=== PATIENT | female | born 1990 | race Caucasian/White ===

== ENCOUNTER 2019-07-15 17:37 | Emergency (ER) | payer SELFPAY ==
[~2019-07-15] VITALS: Ht 172.7 cm; Wt 54.6 kg
[2019-07-15 18:43] LABS: BASO % 0.3 % (0.0-1.0); EOS # 0.1 10^3/uL (0.0-0.5); EOS % 0.6 % (0.0-3.0); HEMATOCRIT 41.6 % (36.0-47.0); HEMOGLOBIN 14.1 g/dl (12.0-15.5); LYMPH # 2.1 10^3/uL (1.5-5.0); LYMPH % 21.3 % (24.0-44.0); MEAN CORPUSCULAR HEMOGLOBIN 32.8 pg (27.0-33.0); MEAN CORPUSCULAR HGB CONC 33.9 g/dl (32.0-36.5); MEAN CORPUSCULAR VOLUME 96.7 fl (80.0-96.0); MONO # 0.6 10^3/uL (0.0-0.8); MONO % 5.7 % (0.0-5.0); NEUTROPHILS # 7.2 10^3/uL (1.5-8.5); NEUTROPHILS % 71.9 % (36.0-66.0); PLATELET COUNT, AUTOMATED 323 10^3/uL (150-450)
[2019-07-15] MEDS ORDERED: ONDANSETRON 4 MG ORAL DISINTEGRATING TAB (Q0162 PER 1MG) PO ONE (18:45)
[2019-07-15] MEDS ORDERED: ACETAMINOPHEN 325 MG TAB PO ONE (18:45)
[2019-07-15 19:56] LABS: ALBUMIN 4.3 GM/DL (3.2-5.2); ALT/SGPT 16 U/L (12-78); BILIRUBIN,DIRECT 0.3 MG/DL (0.0-0.2); BILIRUBIN,TOTAL 0.9 MG/DL (0.2-1.0); BLOOD UREA NITROGEN 7 MG/DL (7-18); CALCIUM LEVEL 9.5 MG/DL (8.5-10.1); CARBON DIOXIDE LEVEL 28 MEQ/L (21-32); CHLORIDE LEVEL 103 MEQ/L (98-107); CREATININE FOR GFR 0.64 MG/DL (0.55-1.30); GLOMERULAR FILTRATION RATE > 60.0 (>60); GLUCOSE, FASTING 74 MG/DL (70-100); HCG, SERUM QUANTITATIVE 99893 MIU/ML; LIPASE 141 U/L (73-393); POTASSIUM SERUM 4.1 MEQ/L (3.5-5.1); SODIUM LEVEL 138 MEQ/L (136-145); TOTAL PROTEIN 7.8 GM/DL (6.4-8.2)
--- NOTE | 2019-07-15 20:10 | REPVR ---
PROCEDURE INFORMATION: Exam: US First Trimester, Transabdominal Exam date and time: 07/15/2019 7:38 PM Clinical history: 29 years old, female; complicated by abdominal or pelvic pain; Lower; First trimester; Gestational age or lmp: 7w 6d; ; Additional info: Abd cramping, lbp, 8wks preg TECHNIQUE: Imaging protocol: Real-time transabdominal obstetrical ultrasound of the maternal pelvis and a first trimester , less than 14 weeks 0 days, with image documentation. COMPARISON: No relevant prior studies available. FINDINGS: GESTATION: Gestation: Intrauterine gestational sac with pole and yolk sac. Heart rate: heartbeat of 178 beats per minute. Placenta: Small subchorionic hemorrhage measuring 11 x 4 x 10 mm. BIOMETRY: Estimated gestational age: [place] rump length is 1.5 cm suggesting an age of 7 weeks 6 days. The EDC is 02/25/2020. MATERNAL: Uterus: Unremarkable. Cervix: Unremarkable. Right adnexa: Grossly unremarkable. Left adnexa: U grossly unremarkable. Intraperitoneal: No intraperitoneal free fluid. IMPRESSION: 1. Single live intrauterine fetus with an estimated age of 7 weeks 6 days by crown-rump length. The EDC is 02/25/2020. 2. Small subchorionic hemorrhage measuring 11 x 4 x 10 mm. Electronically signed by: Jacob Grant On 07/15/2019 20:09:36 PM
[2019-07-15 20:46] VITALS: BP 135/81
== END 2019-07-15 21:03 | disposition home or self-care (01) ==
LOC: M ED 17:37
DX: O20.8 Other hemorrhage in early pregnancy (principal); O99.511 Diseases of the respiratory system complicating pregnancy, first trimester; J45.909 Unspecified asthma, uncomplicated; Z3A.01 Less than 8 weeks gestation of pregnancy; Z88.0 Allergy status to penicillin; Z88.1 Allergy status to other antibiotic agents; Z88.2 Allergy status to sulfonamides; Z88.8 Allergy status to other drugs, medicaments and biological substances
CPT/HCPCS: 36415; 76801; 80048; 80076; 81001; 83690; 84702; 85025; 99284; Q0162

== ENCOUNTER 2019-07-18 18:03 | Emergency (ER) | payer OTHER, SELFPAY ==
[~2019-07-18] VITALS: Ht 172.7 cm; Wt 54.3 kg
[2019-07-18] MEDS ORDERED: PREN1TAB11 PO (18:37)
[2019-07-18] MEDS ORDERED: ZOFR4TAB16 PO (18:37)
[2019-07-18 19:05] LABS: BASO % 0.3 % (0.0-1.0); EOS % 0.3 % (0.0-3.0); HEMATOCRIT 38.4 % (36.0-47.0); HEMOGLOBIN 13.3 g/dl (12.0-15.5); LYMPH # 1.5 10^3/uL (1.5-5.0); LYMPH % 12.2 % (24.0-44.0); MEAN CORPUSCULAR HEMOGLOBIN 32.9 pg (27.0-33.0); MEAN CORPUSCULAR HGB CONC 34.6 g/dl (32.0-36.5); MONO # 0.5 10^3/uL (0.0-0.8); MONO % 4.1 % (0.0-5.0); NEUTROPHILS # 10.1 10^3/uL (1.5-8.5); NEUTROPHILS % 82.6 % (36.0-66.0); PLATELET COUNT, AUTOMATED 308 10^3/uL (150-450); RED BLOOD COUNT 4.04 10^6/uL (4.00-5.40); WHITE BLOOD COUNT 12.2 10^3/uL (4.0-10.0)
[2019-07-18 19:42] LABS: ALBUMIN 4.1 GM/DL (3.2-5.2); ALT/SGPT 19 U/L (12-78); BILIRUBIN,DIRECT 0.3 MG/DL (0.0-0.2); BILIRUBIN,TOTAL 0.9 MG/DL (0.2-1.0); BLOOD UREA NITROGEN 10 MG/DL (7-18); CALCIUM LEVEL 9.5 MG/DL (8.5-10.1); CARBON DIOXIDE LEVEL 28 MEQ/L (21-32); CHLORIDE LEVEL 103 MEQ/L (98-107); CREATININE FOR GFR 0.67 MG/DL (0.55-1.30); GLOMERULAR FILTRATION RATE > 60.0 (>60); GLUCOSE, FASTING 97 MG/DL (70-100); HCG, SERUM QUANTITATIVE 112217 MIU/ML; LIPASE 132 U/L (73-393); POTASSIUM SERUM 3.6 MEQ/L (3.5-5.1); SODIUM LEVEL 139 MEQ/L (136-145); TOTAL PROTEIN 7.5 GM/DL (6.4-8.2)
[2019-07-18] MEDS ORDERED: MORPHINE 4 MG/ML 1ML VIAL/SYRINGE (J2270) IV ONE (19:45)
[2019-07-18] MEDS ORDERED: METOCLOPRAMIDE INJ 10MG/2ML VIAL (J2765) IV ONE (19:45)
[2019-07-18] MEDS ORDERED: NS 1,000 ML IV ONE (19:45)
--- NOTE | 2019-07-18 21:25 | REPVR ---
PROCEDURE INFORMATION: Exam: US First Trimester, Transabdominal Exam date and time: 07/18/2019 8:26 PM Clinical history: 29 years old, female; complicated by abdominal or pelvic pain; Lower; First trimester; Gestational age or lmp: 8w2d; ; Additional info: Worsening rlq and llq pain, severe, 8wks preg TECHNIQUE: Imaging protocol: Real-time transabdominal obstetrical ultrasound of the maternal pelvis and a first trimester , less than 14 weeks 0 days, with image documentation. COMPARISON: US OB 07/15/2019 7:36 PM FINDINGS: GESTATION: Gestation: Intrauterine gestation with pole. Heart rate: heart rate 171 beats per minute. Placenta: There is a small subchorionic hemorrhage measuring 1.3 cm in greatest dimension. Amniotic fluid: Amniotic and chorionic fluid are normal for gestational age. BIOMETRY: Estimated gestational age: Gestational age 8 weeks and 6 days. [place]-Rump length: [place]-rump length 2.2 cm. Estimated due date: Estimated due date 02/25/2020. MATERNAL: Uterus: Unremarkable. Cervix: Unremarkable. Right adnexa: Unremarkable right adnexal structures. Left adnexa: Unremarkable left adnexal structures. Intraperitoneal: No intraperitoneal free fluid. IMPRESSION: Living intrauterine gestation measuring 8 weeks and 6 days with due date 02/25/2020. Again, small subchronic hemorrhage noted. Electronically signed by: Jin Vital On 07/18/2019 21:25:06 PM
[2019-07-18 21:55] VITALS: BP 117/61
[2019-07-18] MEDS ORDERED: MIRA3350 PO (22:00)
[2019-07-18] MEDS ORDERED: ONDA4TAB6 PO (22:01)
[2019-07-18] MEDS ORDERED: LACTULOSE 20 GM/30 ML SYRUP UD PO ONE (22:15)
[2019-07-18] MEDS ORDERED: MAGNESIUM CITRATE 300 ML BTL PO ONE (22:15)
== END 2019-07-18 22:23 | disposition home or self-care (01) ==
LOC: M ED 18:03
DX: O26.891 Other specified pregnancy related conditions, first trimester (principal); Z3A.08 8 weeks gestation of pregnancy; O20.8 Other hemorrhage in early pregnancy; K59.00 Constipation, unspecified; Z88.8 Allergy status to other drugs, medicaments and biological substances; Z88.2 Allergy status to sulfonamides; Z88.0 Allergy status to penicillin; Z88.1 Allergy status to other antibiotic agents; O99.611 Diseases of the digestive system complicating pregnancy, first trimester
CPT/HCPCS: 76801; 80048; 80076; 81001; 83690; 84702; 85025; 86850; 86900; 86901; 93976; 96361; 96374; 96375; 99284; J2270; J2765

== ENCOUNTER → 2019-08-09 | Outpatient (CLI) | payer OTHER ==
[~2019-08-09] MED LIST: MIRA3350 PO; ONDA4TAB6 PO; PREN1TAB11 PO; ZOFR4TAB16 PO
[2019-08-09 17:32] LABS: BASO % 0.3 % (0.0-1.0); EOS % 0.4 % (0.0-3.0); HEMATOCRIT 38.9 % (36.0-47.0); HEMOGLOBIN 13.2 g/dl (12.0-15.5); LYMPH # 1.7 10^3/uL (1.5-5.0); LYMPH % 16.1 % (24.0-44.0); MEAN CORPUSCULAR HEMOGLOBIN 32.1 pg (27.0-33.0); MEAN CORPUSCULAR HGB CONC 33.9 g/dl (32.0-36.5); MEAN CORPUSCULAR VOLUME 94.6 fl (80.0-96.0); MONO # 0.5 10^3/uL (0.0-0.8); NEUTROPHILS # 8.3 10^3/uL (1.5-8.5); NEUTROPHILS % 77.9 % (36.0-66.0); PLATELET COUNT, AUTOMATED 335 10^3/uL (150-450); RED BLOOD COUNT 4.11 10^6/uL (4.00-5.40); WHITE BLOOD COUNT 10.7 10^3/uL (4.0-10.0)
[2019-08-09 17:40] LABS: ALT/SGPT 16 U/L (12-78); BILIRUBIN,TOTAL 1.6 MG/DL (0.2-1.0); CREATININE FOR GFR 0.59 MG/DL (0.55-1.30); FREE T4 1.58 NG/DL (0.76-1.46); GLOMERULAR FILTRATION RATE > 60.0 (>60); LDH LACTATE DEHYDROGENASE 145 U/L (84-246); THYROID STIMULATING HORMONE < 0.005 uIU/ML (0.358-3.740); URIC ACID 2.3 MG/DL (2.6-6.0)
[2019-08-09 17:45] LABS: TOTAL PROTEIN,RANDOM URINE 17.1 MG/DL (0.0-12.0)
[2019-08-09 19:55] LABS: CHLAMYDIA DNA AMPLIFICATION NEGATIVE (NEGATIVE); GC DNA AMPLIFICATION NEGATIVE (NEGATIVE)
[2019-08-10 09:30] LABS: RUBELLA IgG QUALITATIVE IMMUNE (IMMUNE)
[2019-08-10 09:59] LABS: HIV 1&2 SCREEN CENTAUR NEGATIVE (NEGATIVE)
== END ==
LOC: M SMT 15:23
PROVIDERS: ATTEND Advanced Practice Midwife
DX: Z34.81 Encounter for supervision of other normal pregnancy, first trimester (principal); Z3A.00 Weeks of gestation of pregnancy not specified

== ENCOUNTER → 2019-08-12 | Outpatient (CLI) | payer OTHER | LOC: M SMT 13:02 | PROVIDERS: ATTEND Advanced Practice Midwife | DX: Z34.81 Encounter for supervision of other normal pregnancy, first trimester (principal); Z3A.00 Weeks of gestation of pregnancy not specified ==

== ENCOUNTER → 2019-08-24 | Outpatient (CLI) | payer OTHER ==
--- NOTE | 2019-08-25 04:09 | REP ---
Clinical: Kidney stone. Technique: Real time emi scale and color evaluation using curved array transducer. Findings: The bilateral kidneys are normal in reniform shape but demonstrate mildly prominent echogenic pyramids with small echogenic foci causing posterior shadowing suggesting medullary sponge kidney and small nonobstructing intrarenal calculi measuring up to 5 - 6 mm in the left kidney. No hydronephrosis, cystic or renal mass lesion. Right kidney measures 11.3 x 5.9 x 5.1 cm. Left kidney measures 12.2 x 5.2 x 4.7 cm. Small amounts of debris noted in the bladder which are nonspecific and may be correlated with urinalysis. Impression: 1. Nephrolithiasis and possible medullary sponge kidney. Electronically Signed by Alvarado Chisholm MD 08/25/2019 04:00 A
== END ==
LOC: M RAD 15:56
PROVIDERS: ATTEND Advanced Practice Midwife
DX: N20.0 Calculus of kidney (principal)

== ENCOUNTER → 2019-09-13 | Outpatient (CLI) | payer OTHER ==
[2019-09-13 18:45] LABS: FREE THYROXINE INDEX 3.1 % (1.3-4.8); THYROID STIMULATING HORMONE 0.13 uIU/ML (0.358-3.740); THYROXINE (T4) 11.5 UG/DL (4.5-12.0)
== END ==
LOC: M PLALAB 15:51
PROVIDERS: ATTEND Advanced Practice Midwife
DX: Z34.92 Encounter for supervision of normal pregnancy, unspecified, second trimester (principal); Z3A.00 Weeks of gestation of pregnancy not specified

== ENCOUNTER → 2019-09-30 | Outpatient (CLI) | payer OTHER ==
--- NOTE | 2019-09-30 18:31 | REP ---
HISTORY: anatomy. COMPARISON: None. Multiple ultrasonographic images of the gravid uterus show a single living intrauterine gestation in variable positions. Doppler interrogation of the heart shows a heart rate of 157 beats per minute. The placenta is anterior and not low lying. The subjective amniotic fluid volume is within normal limits. The cervix measures 4.2 cm in length and is closed. Evaluation of the maternal adnexal spaces shows no abnormalities. BPD 4.6 cm = 19 weeks 6 days HC 16.5 cm = 19 weeks 2 days AC 14.2 cm = 19 weeks 4 days FL 2.9 cm = 19 weeks 0 days The estimated weight is 284 grams, which is at the 33rd percentile for a 19 week 5 day gestational age. The structures visualized as unremarkable are as follows: Thalami, cavum septum pellucidum, cerebellum, cisterna magna, cerebral ventricles, spine, kidneys, urinary bladder, stomach, four chamber heart, right and left ventricular outflow tracts, three vessel umbilical cord, cord insertion, upper lip, and extremities. IMPRESSION: Single living intrauterine gestation as described above with an estimated gestational age of 19 weeks 3 days via composite criteria and an estimated date of delivery of 02/21/2020 by today's exam. No anomalies were detected. Electronically Signed by Vikash Jones DO 09/30/2019 06:56 P
== END ==
LOC: M RAD 15:32
PROVIDERS: ATTEND Advanced Practice Midwife
DX: Z34.92 Encounter for supervision of normal pregnancy, unspecified, second trimester (principal); Z3A.19 19 weeks gestation of pregnancy

== ENCOUNTER → 2019-10-13 | Outpatient (CLI) | payer OTHER ==
[2019-10-13 18:38] LABS: FREE T4 0.92 NG/DL (0.76-1.46); THYROID STIMULATING HORMONE 0.406 uIU/ML (0.358-3.740)
== END ==
LOC: M PLALAB 15:50
PROVIDERS: ATTEND Advanced Practice Midwife
DX: E07.9 Disorder of thyroid, unspecified (principal)

== ENCOUNTER 2019-11-08 12:27 | Outpatient (CLI) | payer OTHER ==
[~2019-11-08] VITALS: Ht 172.7 cm; Wt 57.7 kg
[2019-11-08] MEDS ORDERED: BUTA1CAP PO (12:43)
[2019-11-08 12:50] VITALS: BP 124/73
[2019-11-08 14:15] VITALS: BP 129/71
== END 2019-11-08 15:08 | disposition home or self-care (01) ==
LOC: M LDO 12:27
PROVIDERS: ATTEND Obstetrics & Gynecology
DX: O26.892 Other specified pregnancy related conditions, second trimester (principal); R10.2 Pelvic and perineal pain; Z87.448 Personal history of other diseases of urinary system; Z3A.24 24 weeks gestation of pregnancy
CPT/HCPCS: 76815; G0378; G0463

== ENCOUNTER → 2019-11-30 | Outpatient (CLI) | payer OTHER ==
[~2019-11-30] MED LIST changes: +BUTA1CAP PO
[2019-11-30 18:27] LABS: HEMATOCRIT 36.4 % (36.0-47.0); HEMOGLOBIN 12.1 g/dl (12.0-15.5); MEAN CORPUSCULAR HEMOGLOBIN 32.5 pg (27.0-33.0); MEAN CORPUSCULAR HGB CONC 33.2 g/dl (32.0-36.5); MEAN CORPUSCULAR VOLUME 97.8 fl (80.0-96.0); PLATELET COUNT, AUTOMATED 269 10^3/uL (150-450); RED BLOOD COUNT 3.72 10^6/uL (4.00-5.40); WHITE BLOOD COUNT 8.1 10^3/uL (4.0-10.0)
== END ==
LOC: M PLALAB 13:49
PROVIDERS: ATTEND Advanced Practice Midwife
DX: Z34.82 Encounter for supervision of other normal pregnancy, second trimester (principal); Z3A.00 Weeks of gestation of pregnancy not specified

== ENCOUNTER → 2019-12-23 | Outpatient (REF) | payer OTHER ==
[2019-12-23 18:37] LABS: APPEARANCE, URINE CLOUDY (CLEAR); BACTERIA, URINE AUTO 1+ (NEGATIVE); BILIRUBIN, URINE AUTO NEGATIVE (NEGATIVE); BLOOD, URINE BLOOD NEGATIVE (NEGATIVE); CALCIUM OXALATE CRYSTALS MODERATE; COLOR, URINE YELLOW (YELLOW); GLUCOSE, URINE (UA) AUTO NEGATIVE (NEGATIVE); KETONE, URINE AUTO NEGATIVE (NEGATIVE); LEUKOCYTE ESTERASE, URINE AUTO 3+ (NEGATIVE); MUCUS, URINE SMALL (NEGATIVE); NITRITE, URINE AUTO NEGATIVE (NEGATIVE); PROTEIN, URINE AUTO NEGATIVE (NEGATIVE); RBC, URINE AUTO 8 /HPF (0-3); SPECIFIC GRAVITY URINE AUTO 1.023 (1.002-1.035); SQUAMOUS EPITHELIAL CELL UR AU 6 /HPF (0-6); WBC, URINE AUTO 10 /HPF (0-3)
== END ==
LOC: M PLALAB 15:48
PROVIDERS: ATTEND Obstetrics & Gynecology
DX: R30.0 Dysuria (principal)

== ENCOUNTER 2020-01-09 18:48 | Outpatient (CLI) | payer OTHER ==
[~2020-01-09] VITALS: Ht 172.7 cm; Wt 61.8 kg
[2020-01-09 19:27] VITALS: BP 126/78
[2020-01-09] MEDS ORDERED: TAMSULOSIN 0.4 MG CAP PO ONE (19:30)
[2020-01-09 21:18] LABS: APPEARANCE, URINE CLOUDY (CLEAR); BACTERIA, URINE AUTO 1+ (NEGATIVE); BILIRUBIN, URINE AUTO NEGATIVE (NEGATIVE); BLOOD, URINE BLOOD 1+ (NEGATIVE); CALCIUM OXALATE CRYSTALS LARGE; COLOR, URINE YELLOW (YELLOW); GLUCOSE, URINE (UA) AUTO NEGATIVE (NEGATIVE); KETONE, URINE AUTO NEGATIVE (NEGATIVE); LEUKOCYTE ESTERASE, URINE AUTO 3+ (NEGATIVE); MUCUS, URINE SMALL (NEGATIVE); NITRITE, URINE AUTO NEGATIVE (NEGATIVE); PROTEIN, URINE AUTO NEGATIVE (NEGATIVE); RBC, URINE AUTO 15 /HPF (0-3); SPECIFIC GRAVITY URINE AUTO 1.016 (1.002-1.035); SQUAMOUS EPITHELIAL CELL UR AU 22 /HPF (0-6); WBC, URINE AUTO 12 /HPF (0-3)
[2020-01-09 21:21] VITALS: BP 127/77
--- NOTE | 2020-01-09 21:46 | REPVR ---
PROCEDURE INFORMATION: Exam: US Retroperitoneal Limited, Kidneys Exam date and time: 01/09/2020 9:17 PM Age: 29 years old Clinical indication: Abdominal pain; Flank; Left; ; Additional info: Decreased movement TECHNIQUE: Imaging protocol: Real-time ultrasound of the retroperitoneum with image documentation. Examination was focused on the kidneys. COMPARISON: RENAL US 08/24/2019 4:03 PM FINDINGS: Right kidney measures 11.4 cm in length. Left kidney measures 10.8 cm in length. Renal parenchymal echotexture and cortical thickness are normal. No solid renal mass or cyst. Probable 5 mm left renal nonobstructing stone Mild right hydronephrosis Bladder is unremarkable. Ureter jets are documented with Doppler on the biophysical profile exam IMPRESSION: Mild right hydronephrosis with a normal documented ureter jet and no obstructive uropathy. This is probably physiologic hydronephrosis secondary to . Nonobstructive left renal stone or 5 mm benign fatty lesion Electronically signed by: Salvador Leos On 01/09/2020 21:45:27 PM
--- NOTE | 2020-01-09 21:48 | REPVR ---
PROCEDURE INFORMATION: Exam: US Biophysical Profile Without Non-Stress Test Exam date and time: 01/09/2020 9:17 PM Age: 29 years old Clinical indication: status abnormalities: ; movements, decreased; Single gestation; Third trimester (28 wks 0 days until delivery); ; Additional info: Decreased movement TECHNIQUE: Imaging protocol: US biophysical profile without non-stress testing. COMPARISON: US OBS SINGEL GEST 09/30/2019 3:50 PM FINDINGS: Biophysical profile score is 8 of a possible 8. Gross body movement score = 2. breathing movement score = 2. tone score = 2. Qualitative amniotic fluid volume score = 2. heart rate with Doppler is 141 beats/min. Amniotic fluid index is 16.5 cm. Distal ureteral jets are seen with Doppler, indicating distal ureteral patency. position is breech at this point. Placental position is anterior. Systolic/diastolic ratio of the umbilical cord is 2.1 IMPRESSION: Biophysical profile score 8 out of a possible 8. Electronically signed by: Salvador Leos On 01/09/2020 21:47:58 PM
[2020-01-09] MEDS ORDERED: FLOM0.4C39 PO (22:14)
--- NOTE | 2020-01-09 22:46 | IPNPDOC ---
Text Note Date of Service The patient was seen on 01/09/20. NOTE Subjective: Patient is a 29-year-old female who is a who is 34.1 weeks gestation with an VANESA of 02/24/20 based off of her LMP and consistent with her first trimester ultrasound. She initiated care in her first trimester of . Her has been complicated by a history of delivery at 35 weeks and kidney stones during this . She has seen urology for her kidney stones during this and 3 days ago she she was given 10 tabs of Percocet to help with her pain. She reports she has tried 1 tab of Percocet and it hasn't helped her flank pain. She is reporting increased pain today and decreased movement. She reports only feeling baby move about 3 -4 times today. She denies any contractions, vaginal bleeding or leaking of fluid. She reports that it has been increasingly harder to urinate. Objective: Labs, US, and VS see below. FHR 130, moderate variability, positive accelerations, no decelerations. Contractions occasional with some uterine irritability. A+O x3. Respiratory rate is regular with no use of accessory muscles. +CVA tenderness left flank. Assessment: IUP 34.1 weeks, nephrolithiasis, decreased movement, Category I FHR tracing. Plan: Flomax ordered and script sent to pharmacy for patient to start taking. Patient discharged to home with precautions. Urine culture was ordered and will call if abnormal. Encouraged to continue to increase fluid intake. She is to call with any fever or decreased ability to urinate or bleeding noted in her urine. Reviewed access to care, kick count, labor signs and danger signs to report. VS,Fishbone, I+O VS, Fishbone, I+O Vital Signs Date Time Temp Pulse Resp B/P (MAP) Pulse Ox O2 Delivery O2 Flow Rate FiO2 01/09/20 19:27 98.1 98 126/78 (94) EXAMINATION REQUESTED: BPP W/O NON STRESS TEST REASON FOR PATIENT VISIT: DECREASE MOVEMENT, BACK PAIN REASON FOR EXAMINATION: DECREASED MOVEMENT Item Value Date Time Urine Color YELLOW 01/09/202049 Urine Appearance CLOUDY H 01/09/202049 Urine pH 6.0 UNITS 01/09/202049 Urine Specific [place] 1.016 01/09/202049 Urine Protein NEGATIVE mg/dL 01/09/202049 Urine Glucose (Auto)(UA) NEGATIVE mg/dL 01/09/202049 Urine Ketones (Auto) NEGATIVE mg/dL 01/09/202049 Urine Blood 1+ H 01/09/202049 Urine Nitrite NEGATIVE 01/09/202049 Urine Bilirubin NEGATIVE 01/09/202049 Urine Urobilinogen 2.0 mg/dL H 01/09/202049 Urine Leukocyte Esterase (Auto) 3+ H 01/09/202049 Urine WBC (Auto) 12 /HPF H 01/09/202049 Urine RBC (Auto) 15 /HPF H 01/09/202049 Urine Hyaline Casts (Auto) 0 /LPF 01/09/202049 Urine Bacteria (Auto) 1+ H 01/09/202049 Urine Squamous Epithelial Cells 22 /HPF 01/09/202049 Urine Calcium Oxalate Cryst (Auto) LARGE 01/09/202049 Urine Mucus (Auto) SMALL 01/09/202049 PROCEDURE INFORMATION: Exam: US Biophysical Profile Without Non-Stress Test Exam date and time: 01/09/2020 9:17 PM Age: 29 years old Clinical indication: status abnormalities: ; movements, decreased; Single gestation; Third trimester (28 wks 0 days until delivery); ; Additional info: Decreased movement TECHNIQUE: Imaging protocol: US biophysical profile without non-stress testing. COMPARISON: US OBS SINGEL GEST 09/30/2019 3:50 PM FINDINGS: Biophysical profile score is 8 of a possible 8. Gross body movement score = 2. breathing movement score = 2. tone score = 2. Qualitative amniotic fluid volume score = 2. heart rate with Doppler is 141 beats/min. Amniotic fluid index is 16.5 cm. Distal ureteral jets are seen with Doppler, indicating distal ureteral patency. position is breech at this point. Placental position is anterior. Systolic/diastolic ratio of the umbilical cord is 2.1 IMPRESSION: Biophysical profile score 8 out of a possible 8. Electronically signed by: Salvador Leos On 01/09/2020 21:47:58 PM EXAMINATION REQUESTED: RENAL US REASON FOR PATIENT VISIT: DECREASE MOVEMENT, BACK PAIN REASON FOR EXAMINATION: DECREASED MOVEMENT PROCEDURE INFORMATION: Exam: US Retroperitoneal Limited, Kidneys Exam date and time: 01/09/2020 9:17 PM Age: 29 years old Clinical indication: Abdominal pain; Flank; Left; ; Additional info: Decreased movement TECHNIQUE: Imaging protocol: Real-time ultrasound of the retroperitoneum with image documentation. Examination was focused on the kidneys. COMPARISON: RENAL US 08/24/2019 4:03 PM FINDINGS: Right kidney measures 11.4 cm in length. Left kidney measures 10.8 cm in length. Renal parenchymal echotexture and cortical thickness are normal. No solid renal mass or cyst. Probable 5 mm left renal nonobstructing stone Mild right hydronephrosis Bladder is unremarkable. Ureter jets are documented with Doppler on the biophysical profile exam IMPRESSION: Mild right hydronephrosis with a normal documented ureter jet and no obstructive uropathy. This is probably physiologic hydronephrosis secondary to . Nonobstructive left renal stone or 5 mm benign fatty lesion Electronically signed by: Salvador Leos On 01/09/2020 21:45:27 PM ABEBA PETERSON CNM Jan 09, 2020 22:46
== END 2020-01-09 23:04 | disposition home or self-care (01) ==
LOC: M LDO 18:48
PROVIDERS: ATTEND Advanced Practice Midwife
DX: O36.8130 Decreased fetal movements, third trimester, not applicable or unspecified (principal); O26.833 Pregnancy related renal disease, third trimester; N20.0 Calculus of kidney; N13.30 Unspecified hydronephrosis; Z79.899 Other long term (current) drug therapy; Z87.51 Personal history of pre-term labor; Z88.1 Allergy status to other antibiotic agents; Z88.8 Allergy status to other drugs, medicaments and biological substances
CPT/HCPCS: 59025; 76775; 76815; 76819; 76820; 81001; 87088; G0378; G0463

== ENCOUNTER → 2020-01-30 | Outpatient (REF) | payer OTHER ==
[~2020-01-30] MED LIST changes: +FLOM0.4C39 PO
== END ==
LOC: M PLALAB 14:34
PROVIDERS: ATTEND Advanced Practice Midwife
DX: Z34.83 Encounter for supervision of other normal pregnancy, third trimester (principal); Z36.85 Encounter for antenatal screening for Streptococcus B

== ENCOUNTER → 2020-02-03 | Outpatient (CLI) | payer OTHER ==
--- NOTE | 2020-02-04 07:56 | REP ---
REASON FOR EXAM: Followup. Comparison examination is 01/09/2020. The kidneys are unchanged in size, shape, and echo pattern. The mild hydronephrosis seen previously on the right has resolved. There are no additional or new abnormalities. IMPRESSION: Resolved hydronephrosis. Otherwise, no change from the prior exam obtained less than a month ago. Electronically Signed by Vikash Jones DO 02/06/2020 07:50 A
== END ==
LOC: M RAD 12:49
PROVIDERS: ATTEND Nurse Practitioner Women's Health
DX: Q61.5 Medullary cystic kidney (principal); R10.9 Unspecified abdominal pain

== ENCOUNTER 2020-02-17 14:23 | Inpatient (IN) | payer OTHER ==
[2020-02-17] VITALS (15 sets, daily range): BP systolic 113–140; BP diastolic 67–83
[~2020-02-17] VITALS: Ht 172.7 cm; Wt 64.9 kg
[2020-02-17] MEDS ORDERED: LR 1,000 ML IV SCH (15:53)
[2020-02-17] MEDS ORDERED: OXYTOCIN DRIP 30 UNITS in IV 1 EA IV SCH (16:00)
--- NOTE | 2020-02-17 16:31 | HPEPDOC ---
Obstetrical History & Physical General Date of Admission February 17, 2020 at 14:23 History of Present Illness Chief Complaint: Induction of labor Information Provided By: Patient Age: 29 : 5 Term: 1 Pre-term: 1 Abortions: 2 Livin Care Care: Good Care Dating Final EDC: February 24, 2020 Final EDC by: LMP EGA at Admission: 39 Antepartum Course Height (inches): 68 Pre- weight (lbs.): 112 Admission Weight (lbs.): 144.4 Past Medical History Past Obstetrical History #1: Past Obstetrical History: Primgravida (2014) Type of Delivery: Spontaneous Vaginal Del. (35wks) Sex of : Female (5#4) Complications: Yes (preeclampsia) Past Obstetrical History #2: Past Obstetrical History: Multigravida (2016) Type of Delivery: Spontaneous Vaginal Del. Sex of Infant: Female (7#11) Complications: Yes (induction, uncertain if preeclampsia) SOLARIS ADMINISTRATOR History: Spontaneous Past Medical History Medical History kidney stones, including during this thyroid disease, no current meds asthma, no current meds childhood seizure, unknown etiology Surgical History: Denies/None Family History Significant Family History: Diabetes, Heart disease, Hypertension Social History Marital Status: Family situation: Spouse/partner home Psychosocial History: No pertinent psych hx * Smoker: non-smoker Alcohol: Denies Drugs: denies Abuse Violence Screening Have you been hit/kicked/slapp: No Have you been sexually assault: No Imunizations Tdap status: declined Allergies Coded Allergies: clarithromycin (Verified Allergy, Severe, TONGUE SWELLING, 02/17/20) sulfamethoxazole (Verified Allergy, Severe, TONGUE SWELLING, 02/17/20) trimethoprim (Verified Allergy, Severe, TONGUE SWELLING, 02/17/20) amoxicillin (Verified Adverse Reaction, Mild, VOMITING, 02/17/20) amphetamine (Verified Adverse Reaction, Mild, HEART RACING, 02/17/20) atomoxetine (Verified Adverse Reaction, Mild, HEART RACING, 02/17/20) dextroamphetamine (Verified Adverse Reaction, Mild, HEART RACING, 02/17/20) methylphenidate (Verified Adverse Reaction, Mild, HEART RACING, 02/17/20) Medications No Active Prescriptions or Reported Meds Physical Examination Physical Examination GENERAL: Alert and oriented times three. BREAST: . ABDOMEN: Gravid and non-tender to touch. FETUS: Is vertex (VTX) by sterile vaginal examination (SVE), fetus is vertex (VTX) by Rickie. HEART RATE: Regular rate and rhythm. LUNGS: Clear to auscultation (CTA). EXTREMITIES: No edema. No clonus. Deep tendon reflexes (DTRs) + 2 Laboratory Data 24H LABS Laboratory Tests 2 02/17/20 14:45: Serology Scanned Report Hepatitis B Testing Pertinent Laboratoy Data Blood Type: B+ RBC Antibody Screen: Negative HIV: Negative Hepatitis B: Negative Hepatitis C: Negative Rapid Plasma Reagin: Nonreactive Rubella: Immune Chlamydia/Gonorrhea: Negative Group B Streptococcus: Negative Glucose Tolerance Test: 84 Anatomy Ultrasound Ultrasound Date: Sep 30, 2019 Placenta Location: Anterior Normal Anatomy: Yes Placenta Previa: No Estimated Weight (grams): 284 (33%) Other Ultrasounds 07/15/19 cramping - SIUP 7w6d VANESA 02/25/20. Small subchorionic hemorrhage 07/18/19 - pain - SIUP 8w6d VANESA 02/25/2020 small subchorionic hemorrhage 08/09/19 - viability - TAUS 11w6d Steroid Therapy Steroid Therapy: No Vaginal Examination Dilation: 2cm (-3) Effacement: 50% Station: -2 Cervical Consistency: Medium Cervical Position: Posterior Presentation: Cephalic presentation Assessment Heart Rate (FHR): 145 Variability: Moderate Accelerations: Positive Decelerations: None Tocometer Contractions: Yes Frequency: irregular Strength: palpated as mild Assessment/Plan Assessment Brian is a 29-year-old (G)5 para (P)1-1-2-2 at 39+0 weeks by 7-week ultrasound. Presents to Labor and Delivery (L&D) elective induction of labor. has been complicated by kidney stones and labile blood pressures. Denies bleeding, LOF. Reports good movement. Plan Admit and orient per consult Dr Vega Air Support Control Officer and consent. Diet: clear liquids. Group B Streptococcus (GBS) negative. Labs and intravenous (IV) per unit protocol. Counseled on Pitocin and induction of labor (IOL). Lactated Ringers (LR): Bolus 500 mL, then at 125 mL/hr. Plans epidural for labor coping Anticipate normal spontaneous delivery (). C-S as appropriate. Vallandigham,Azul D. CNM February 17, 2020 16:10
[2020-02-17 17:11] LABS: HEMATOCRIT 41.4 % (36.0-47.0); HEMOGLOBIN 14.2 g/dl (12.0-15.5); MEAN CORPUSCULAR HEMOGLOBIN 32.6 pg (27.0-33.0); MEAN CORPUSCULAR HGB CONC 34.3 g/dl (32.0-36.5); PLATELET COUNT, AUTOMATED 262 10^3/uL (150-450); RED BLOOD COUNT 4.36 10^6/uL (4.00-5.40); WHITE BLOOD COUNT 9.5 10^3/uL (4.0-10.0)
--- NOTE | 2020-02-17 23:19 | IPNPDOC ---
Text Note Date of Service The patient was seen on 02/17/20. NOTE Progress Remains comfortable UC Q 2-4 minutes, mild Pitocin @ 6mu FH Cat I, 135 SVE /-2 AROM large amount heavy meconium stained fluid NICU notified to be present at delivery Considering epidural at this time VS,Fishbone, I+O VS, Fishbone, I+O Laboratory Tests 02/17/20 15:13 Vital Signs Date Time Temp Pulse Resp B/P (MAP) Pulse Ox O2 Delivery O2 Flow Rate FiO2 02/17/20 20:14 99 18 124/78 (93) 02/17/20 19:27 98.1 Azul Allen CNM February 17, 2020 23:19
[2020-02-17] MEDS ORDERED: FENTANYL 2MCG/ML ROPIVACAINE 0.2% IN 0.9% NACL 100ML IVBAG As Ordered ONE (23:42)
[2020-02-18] VITALS (15 sets, daily range): BP systolic 108–162; BP diastolic 50–103
[2020-02-18] MEDS ORDERED: REFRIGERATOR IV KEYS XX PRN (02:30)
[2020-02-18] MEDS ORDERED: diphenhydrAMINE 50MG/ML VIAL (J1200) IV PRN (02:30)
[2020-02-18] MEDS ORDERED: EPIDURAL/PCA KEYS XX PRN (02:30)
[2020-02-18] MEDS ORDERED: ePHEDrine SULFATE 25 MG/5 ML(5MG/ML) SYRINGE IV PRN (02:30)
[2020-02-18] MEDS ORDERED: LACTATED RINGER'S 1000 ML IV PRN (02:30)
[2020-02-18] MEDS ORDERED: ONDANSETRON 4MG/2ML VIAL IV PRN (02:30)
[2020-02-18] MEDS ORDERED: NALOXONE INJ 0.4MG/1ML VIAL (J2310 PER 1MG) IV PRN (02:30)
[2020-02-18] MEDS ORDERED: FENTANYL/ROPIVACAINE/NACL BAG 100 ML EPIDURAL SCH (02:30)
[2020-02-18] MEDS ORDERED: EPIDURAL COMMENT XX SCH (02:30)
[2020-02-18] MEDS ORDERED: ACETAMINOPHEN TAB 650MG DOSE (2X325MG) PO PRN (02:45)
[2020-02-18] MEDS ORDERED: ANUSOL HC CREAM 30GM TOP PRN (02:45)
[2020-02-18] MEDS ORDERED: DIBUCAINE 1% OINTMENT 30GM TOP PRN (02:45)
[2020-02-18] MEDS ORDERED: MEASLES,MUMPS,RUBELLA VACCINE INJ (MMR-II) (90707) SC SCH (02:45)
[2020-02-18] MEDS ORDERED: METHYLERGONOVINE MALEATE 0.2 MG TAB PO PRN (02:45)
[2020-02-18] MEDS ORDERED: MOM 30ML SUSPENSION UDC PO PRN (02:45)
[2020-02-18] MEDS ORDERED: IBUPROFEN 600 MG TAB PO PRN (02:45)
[2020-02-18] MEDS ORDERED: OXYTOCIN DRIP 30 UNITS in IV 1 EA IV SCH (02:45)
[2020-02-18] MEDS ORDERED: DOCUSATE SODIUM 100 MG CAP PO PRN (02:45)
[2020-02-18] MEDS ORDERED: RHOGAM 300 MCG (1500 IU) INJ (J2790) IM SCH (02:45)
--- NOTE | 2020-02-18 02:55 | DNPDOC ---
[facility] Delivery Note Delivery Note DATE OF DELIVERY: 02/18/2020 PREDELIVERY DIAGNOSIS: 39+1/7 weeks' gestation and labor. POST DELIVERY DIAGNOSIS: Delivered. PROCEDURE: Spontaneous vaginal delivery PROVIDER: Azul Allen CNM ANESTHESIA: Epidural. ESTIMATED BLOOD LOSS: 150 mL. FINDINGS: 7 pound 12 ounce, 3520gm male infant, Score 9/9, nuchal cord times 1, tight. DELIVERY SUMMARY: Patient is a 29-year-old 5 now para 2-1-2-3 who was admitted to labor and delivery for elective induction of labor. She received pitocin and utilized an epidural for labor coping. AROM large amount heavy meconium stained fluid 2310. Fully dilated 0112. Viable male delivered OA through a tight nuchal cord @ 0146. Dr Ma present at delivery, bulb suctioned immediately following . Infant then transitioned on maternal abdomen, crying. Cord doubly clamped and cut prior to going to warmer for further suctioning and evaluation by Dr Ma. Cord gases obtained, results pending. Apgars 9/9. Placenta jarquin, intact with 3v cord 0153. Fundus firmed with massage and IV bolus of premixed pitocin solution. EBL 150ml. Cervix, vagina and perineum inspected, intact. wt 3520gm, 7#12. Sponge, sharp and instrument count correct. Azul Allen CNM February 18, 2020 02:53
[2020-02-18 03:06] LABS: CORD GAS ABE V -3.3; CORD GAS O2 SAT V 56.2 %; CORD GAS PCO2 V 50.6 mmHg; CORD GAS PH V 7.294 UNITS; CORD GAS PO2 V 24.4 mmHg; CORD GAS SBC V 20.6 MEQ/L; CORD GAS TCO2 V 25.6 MEQ/L
[2020-02-18] MEDS: IBUPROFEN 800 MG TAB PO PRN ×3 (08:01→19:28)
[2020-02-18] MEDS: PRENATAL VITAMINS CHEWABLE TABLET PO SCH (08:01)
[2020-02-18] MEDS: ACETAMINOPHEN 500 MG TAB PO PRN (10:50)
[2020-02-19] MEDS: ACETAMINOPHEN 500 MG TAB PO PRN (02:28)
[2020-02-19 06:42] VITALS: BP 117/69
[2020-02-19] MEDS: PRENATAL VITAMINS CHEWABLE TABLET PO SCH (07:35)
[2020-02-19] MEDS: IBUPROFEN 800 MG TAB PO PRN (15:00)
== END 2020-02-19 15:30 | disposition home or self-care (01) | DRG 807 ==
LOC: M LDI 14:23 → M OBS 02-18 03:48
PROVIDERS: ADMIT Advanced Practice Midwife; ATTEND Advanced Practice Midwife
PROC: 10E0XZZ Delivery of Products of Conception, External Approach (ICD-10-PCS; principal; 2020-02-18)
PROC: 3E033VJ Introduction of Other Hormone into Peripheral Vein, Percutaneous Approach (ICD-10-PCS; 2020-02-18)
PROC: 10907ZC Drainage of Amniotic Fluid, Therapeutic from Products of Conception, Via Natural or Artificial Opening (ICD-10-PCS; 2020-02-18)
DX: O77.0 Labor and delivery complicated by meconium in amniotic fluid (principal); Z37.0 Single live birth; Z3A.39 39 weeks gestation of pregnancy; N20.0 Calculus of kidney